=== PATIENT | female | born 1950 | race Caucasian/White ===

== ENCOUNTER 2017-12-01 13:34 | Observation (INO) | payer MEDICARE, BC ==
[2017-12-01] MEDS ORDERED: Aspirin Low Dose CHEW TAB* 81 MG PO ONE (13:55)
[2017-12-01 14:27] LABS: INR 0.86 (0.77-1.02)
[2017-12-01 14:30] LABS: ABS Basophils 0 10^3/ul (0-0.2); ABS Eosinophils 0.1 10^3/ul (0-0.6); ABS Lymphocytes 1.1 10^3/ul (1.0-4.8); ABS Monocytes 0.4 10^3/ul (0-0.8); ABS Neutrophils 5.2 10^3/ul (1.5-7.7); ABS Nucleated RBC 0 10^3/ul; Hematocrit 42 % (35-47); Hemoglobin 14.2 g/dl (12.0-16.0); Lymphocyte % 16.8 % (25-47); Mean Corpuscular HGB Conc 34 g/dl (31-36); Mean Corpuscular Hemoglobin 31 pg (27-31); Mean Corpuscular Volume 91 fL (80-97); Mean Platelet Volume 10 um3 (7.4-10.4); Nucleated Red Blood Cells % 0.1; Platelet Count 164 10^3/ul (150-450); Red Blood Count 4.62 10^6/ul (4.0-5.4); Red Cell Distribution Width 12 % (10.5-15); White Blood Count 6.8 10^3/ul (3.5-10.8)
[2017-12-01 14:47] LABS: EGFR Non-African American 57.1 (>60)
--- NOTE | 2017-12-01 15:13 | RAD ---
HISTORY: Chest pain COMPARISONS: None VIEWS: 1: frontal portable view of the chest at 2:49 PM FINDINGS: LINES AND TUBES: None. CARDIOMEDIASTINAL SILHOUETTE: The cardiomediastinal silhouette is normal for portable technique. PLEURA: The costophrenic angles are sharp. No pleural abnormalities are noted. LUNG PARENCHYMA: The lungs are clear. ABDOMEN: The upper abdomen is clear. There is no subphrenic gas. BONES AND SOFT TISSUES: No bone or soft tissue abnormalities are noted. IMPRESSION: NO ACTIVE CARDIOPULMONARY DISEASE.
[2017-12-01 15:53] LABS: Urine Appearance Clear; Urine Blood Negative (Negative); Urine Color Yellow; Urine Ketones Negative (Negative); Urine Protein Negative (Negative); Urine Specific Gravity 1.005 (1.010-1.030); Urine Urobilinogen Negative (Negative)
[2017-12-01] MEDS ORDERED: Magnesium Hydroxide LIQ* 30 ML UDC PO PRN (16:55)
[2017-12-01] MEDS ORDERED: Acetaminophen TAB* 325 MG PO PRN (16:55)
[2017-12-01] MEDS ORDERED: Al Hydrox/Mg Hydrox/Simet LIQ* 30 ML UDC PO PRN (16:55)
[2017-12-01] MEDS ORDERED: Ondansetron INJ* 2 MG/ML VIAL IV PRN (16:55)
[2017-12-01] MEDS ORDERED: traMADol TAB* 50 MG PO PRN (16:59)
[2017-12-01] MEDS: Docusate CAP* 100 MG PO SCH (20:18)
[2017-12-01] MEDS: Heparin VIAL(*) 5000 UNITS/ML VIAL (FIVE THOUSAND) SUBCUT SCH (20:18)
[2017-12-02] MEDS ORDERED: Melatonin (NF) 3 MG TAB PO ONE (01:00)
--- NOTE | 2017-12-02 03:30 | HP ---
AMENDED REPORT NOW INCLUDES COSIGNER DESIGNATION - ESIGNED BEFORE ADJUSTMENT CC: Dr. Webb * HISTORY AND PHYSICAL: DATE OF ADMISSION: 12/01/17 PROVIDER: Carolynn Perea NP. ATTENDING PHYSICIAN WHILE IN THE HOSPITAL: Agustina Bustamante MD * (dictated by Carolynn Perea NP). CHIEF COMPLAINT: Chest pain. HISTORY OF PRESENT ILLNESS: Ms. Jimenez is a 67-year-old female who carries a past medical history of high cholesterol and chronic back pain, depression, who presented to the emergency room with severe chest pain this morning. She states that this morning she developed severe onset of chest pain that lasted approximately 15 to 20 minutes where it was severe and then gradually dissipated over the next half an hour to 45 minutes. She states that initially the chest pain was sharp and then it gradually decreased to an ache, By the she arrived to the emergency her chest pain was gone. The patient also reports that the pain did radiate to her upper back and right jaw. She does report that lately she has had shortness of breath with exertion, especially climbing hills and climbing stairs. She denies any recent sick contacts. She denied any abdominal pain, nausea or vomiting or diaphoresis, denied any shortness of breath, cough or congestion. She denies any fevers or weakness While in the emergency room, she had serial lab work done. Her initial troponin is negative. Her CBC and BMP are essentially normal, except for a sodium of 131 and chloride of 98. Her creatinine is 0.97. Her potassium was 4.1, her mag was 2.4. We were asked to evaluate and admit her for her chest pain. PAST MEDICAL HISTORY: Significant for: 1. Back pain. 2. Depression. PAST SURGICAL HISTORY: abdominoplasty in 2000. No other surgeries. MEDICATIONS: 1. Celebrex 200 mg p.o. daily. 2. Vytorin 40/10. 3. Wellbutrin 300 mg p.o. daily. 4. Tramadol 50 mg p.r.n. 5. Multivitamin. 6. Calcium. 7. Glucosamine. ALLERGIES: No known drug allergies. FAMILY HISTORY: Mother~ aortic dissection and stroke, father ~ hypertension. Father and grandmother with diabetes and grandfather with bone cancer. SOCIAL HISTORY: The patient is a former smoker. She quit approximately 35 years ago. Prior to that she smoked 1 to 2 packs a day for approximately 15 years. She reports occasional alcohol use, denies any illicit drug use. 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 She is . Her surrogate decision maker is her , Silas, in the event she is unable to make her own decisions. His number is [phone]. REVIEW OF SYSTEMS: There is no documented fever. There has been no significant weight change. There is no double vision. No ear discharge. She does report occasional post nasal drip. She denies any sore throat. She denies any chest pain at this time. She does report that she had severe sharp chest pain earlier in the day that lasted approximately 15 to 20 minutes and then gradually dissipated. She denies any orthopnea or nocturnal dyspnea. There is no abdominal pain, there is no nausea, vomiting or diarrhea. There is no dysuria, no frequency. She denies any loss of consciousness. No pruritus or skin ulcerations. Denies any visual complaints. Denies any difficulty swallowing. Denies any anxiety or depression. A review of 14 systems was completed and all others are negative. PHYSICAL EXAMINATION GENERAL: At this time, Ms. Jimenez is a 67-year-old female. She appears well , sitting on the stretcher, in the emergency room. She does not appear to be in any acute distress. VITAL SIGNS: Blood pressure 155/77, heart rate was 70, respirations are 12, O2 saturation is 100% on room air. HEENT: Head is atraumatic, normocephalic. Eyes: EOMs are intact. Sclera anicteric, not pale. Oral mucosa appears to be moist. No oropharyngeal erythema. NECK: Supple. LUNGS: Clear to auscultation bilaterally. No wheezes, rales or rhonchi. CARDIAC: S1, S2. Regular rate and rhythm. There are no murmurs, rubs or gallops. She is tachycardic. ABDOMEN: Soft and nontender. Bowel sounds are present x4. EXTREMITIES: Pulses are +2 throughout. She is moving all 4 extremities with strength 5/5. NEUROLOGIC: She is awake, alert, and oriented x3. Speech is clear. There are no focal deficits. SKIN: Intact. DIAGNOSTIC AND LABORATORY DATA: WBC is 6.8, RBC is 4.62, hemoglobin 14.2, hematocrit 42, platelet count 164. INR is 0.86. D-dimer was less than 200. Sodium was 131, potassium 4.1, chloride 98, carbon dioxide 24, anion gap was 9, BUN was 14, creatinine 0.97, glucose was 99, lactic acid was 0.5, calcium was 9.5, magnesium was 2.4. TSH was 1.37. BNP was 25. Troponin was 0.00. Urinalysis: pH was 7.0, specific gravity was 1.005; urine protein, ketones, blood, nitrates, urine bilirubin, urine leukocyte esterase, and urine glucose were all negative. She had a chest x-ray in the emergency room that showed no active cardiopulmonary disease. EKG was sinus rhythm at 68. ASSESSMENT AND PLAN: Ms. Jimenez is a 67-year-old female that presented to the emergency room today with complaints of sharp midsternal chest pain that radiated to her back. We were asked to evaluate her for chest pain and rule out coronary artery disease. She will be admitted under observation status for: 1. Chest pain: We will place her on telemetry monitoring. She will get serial troponins. We will repeat an EKG on Monday morning. She will have a nuclear stress test on Monday. She states that she is able to walk on a treadmill, so we will do an exercise stress with the nuclear. She will be placed on heart-healthy diet. 2. High cholesterol: We will continue her on her Vytorin . We will repeat a fasting lipid panel in the a.m. 3. Depression: We will continue her on her Wellbutrin 300 mg p.o. daily. 4. Chronic back pain: She can have Tramadol 50 mg every 6 hours as needed for pain. 5. DVT prophylaxis: She will get heparin 5000 units subcu q.8 hours. 6. Code status: She is a full code. 7. Fluid, electrolytes, nutrition: She can have a heart-healthy diet, decaf is okay. TIME SPENT: Time spent on this admission was approximately 60 minutes, greater than half that time was spent [id number] with the patient obtaining her history and physical, the other half of the time was spent going over her plan of care with the patient and her family and implementing that plan of care. I have discussed this with my attending, Dr. Agustina Bustamante, and she is in agreement with my plan. CAROLYNN PEREA, ELECTRIC [employer] FURNACE OPERATOR [id number]/[facility] #: [id number] [facility]IDE HOSPITALChapincito
[2017-12-02] MEDS: Heparin VIAL(*) 5000 UNITS/ML VIAL (FIVE THOUSAND) SUBCUT SCH ×3 (05:21→20:02)
[2017-12-02 05:51] LABS: ABS Basophils 0 10^3/ul (0-0.2); ABS Eosinophils 0.1 10^3/ul (0-0.6); ABS Lymphocytes 1.3 10^3/ul (1.0-4.8); ABS Monocytes 0.4 10^3/ul (0-0.8); ABS Neutrophils 3.4 10^3/ul (1.5-7.7); ABS Nucleated RBC 0 10^3/ul; Eosinophil % 1.4 % (0-6); Hematocrit 38 % (35-47); Hemoglobin 12.9 g/dl (12.0-16.0); Lymphocyte % 25.2 % (25-47); Mean Corpuscular HGB Conc 34 g/dl (31-36); Mean Corpuscular Hemoglobin 31 pg (27-31); Mean Corpuscular Volume 91 fL (80-97); Mean Platelet Volume 10 um3 (7.4-10.4); Nucleated Red Blood Cells % 0.1; Platelet Count 139 10^3/ul (150-450); Red Cell Distribution Width 13 % (10.5-15); White Blood Count 5.3 10^3/ul (3.5-10.8)
[2017-12-02 06:07] LABS: EGFR Non-African American 63.1 (>60)
[2017-12-02] MEDS: Ezetimibe TAB* 10 MG PO SCH (09:00)
[2017-12-02] MEDS ORDERED: EZETIMIBE PO SCH (09:00)
[2017-12-02] MEDS: Docusate CAP* 100 MG PO SCH ×2 (09:00→20:02)
[2017-12-02] MEDS: Atorvastatin* 20 MG TAB PO SCH (09:00)
[2017-12-02] MEDS ORDERED: SIMVASTATIN PO SCH (09:00)
[2017-12-02] MEDS: celeCOXIB CAP* 100 MG PO SCH (09:13)
--- NOTE | 2017-12-02 15:24 | PN ---
Subjective Date of Service: 12/02/17 Interval History: Patient had minor ches discomfort for 15 minutes last evening. Objective Active Medications: Acetaminophen (Tylenol Tab*) 650 mg PO Q4H PRN PRN Reason: FEVER/PAIN Al Hydrox/Mg Hydrox/Simethicone (Maalox Plus*) 30 ml PO Q6H PRN PRN Reason: INDIGESTION Atorvastatin Calcium (Lipitor*) 20 mg PO DAILY [facility] Last Admin: 12/02/17 09:00 Dose: 20 mg Celecoxib (Celebrex Cap*) 200 mg PO DAILY [facility] Last Admin: 12/02/17 09:13 Dose: 200 mg Docusate Sodium (Colace Cap*) 100 mg PO BID [facility] Last Admin: 12/02/17 09:00 Dose: Not Given Ezetimibe (Zetia Tab*) 10 mg PO DAILY [facility] Last Admin: 12/02/17 09:00 Dose: 10 mg Heparin Sodium (Porcine) (Heparin Vial(*)) 5,000 units SUBCUT Q8HR [facility] Last Admin: 12/02/17 14:07 Dose: Not Given Magnesium Hydroxide (Milk Of Magnesia Liq*) 30 ml PO Q4H PRN PRN Reason: CONSTIPATION Ondansetron HCl (Zofran Inj*) 4 mg IV Q4H PRN PRN Reason: NAUSEA/VOMITING Tramadol HCl (Ultram*) 50 mg PO Q6HR PRN PRN Reason: PAIN Vital Signs - 8 hr 12/02/17 07:37 Temperature 97.9 F Pulse Rate 70 Respiratory 16 Rate Blood Pressure 126/60 (mmHg) O2 Sat by Pulse 97 Oximetry Oxygen Devices in Use Now: None Appearance: Alert, in a chair. In good spirits. Looks comfortable. Eyes: No Scleral Icterus Extremities: No Edema, No Clubbing, Cyanosis, - Skin: No Rash or Ulcers, No Nodules or Sclerosis, - Neurological: Alert and Oriented x 3, NL Sensation Result Diagrams: 12/02/17 05:41 12/02/17 05:41 Assess/Plan/Problems-Billing Assessment: - Patient Problems (1) Atypical chest pain Current Visit: Yes Status: Acute Code(s): R07.89 - OTHER CHEST PAIN SNOMED Code(s): 237081265 Comment: All 3 troponins wnl. Stress echo 12/04. Patient prefers to not have nuclear scan. Walking here quite a bit. (2) Back pain Current Visit: Yes Status: Acute Code(s): M54.9 - DORSALGIA, UNSPECIFIED SNOMED Code(s): 665302813 Comment: Continue home meds. (3) Depressed Current Visit: Yes Status: Acute Code(s): F32.9 - MAJOR DEPRESSIVE DISORDER , SINGLE EPISODE, UNSPECIFIED SNOMED Code(s): 97875168 Comment: Continue home meds.
--- NOTE | 2017-12-02 16:49 | ED ---
Silver Mi Thomas, scribed for John Hagan MD on 12/01/17 at 1450 . HPI Chest Pain - HPI Summary HPI Summary: The patient is a 67 year old female presenting with chest pain that began one hour prior to arrival when she was sitting and working at her computer. The episode of chest pain is relieved in the emergency department, and the duration of the episode was 10-20 minutes. The pain is described as pressure. She rates this pain 8/10. She has never had pain like this before. She denies nausea, vomiting, dizziness, shortness of breath, and near-syncope. Past medical history includes HLD. - History of Current Complaint Chief Complaint: EDChestPainROMI Time Seen by Provider: 12/01/17 13:43 Hx Obtained From: Patient Onset/Duration: Started Hours Ago - 1, Resolved Timing: Lasting Minutes - 10-20 Initial Severity: Severe Pain Intensity: 8 Pain Scale Used: 0-10 Numeric Chest Pain Radiates: No Aggravating Factor(s): Nothing Alleviating Factor(s): Nothing Associated Signs and Symptoms: Negative: Other: - nausea, vomiting, dizziness, shortness of breath, near-syncope - Allergy/Home Medications Allergies/Adverse Reactions: Allergies Allergy/AdvReac Type Severity Reaction Status Date / Time No Known Allergies Allergy Verified 12/01/17 14:22 Home Medications: Home Medications Bupropion XL* [Wellbutrin XL *] 300 mg PO DAILY 12/01/17 [History Confirmed 07/10] DULoxetine DR CAP* [Cymbalta CAP*] 30 mg PO DAILY 12/01/17 [History Confirmed ] Ezetimibe/Simvastatin [Vytorin 10-40 mg Tablet] 1 each PO DAILY 12/01/17 [ History Confirmed 12/01/17] celeCOXIB CAP* [CeleBREX CAP*] 200 mg PO DAILY 12/01/17 [History Confirmed 12/01] traMADol TAB* [Ultram*] 50 mg PO Q6HR PRN 12/01/17 [History Confirmed 12/01/17] PMH/Surg Hx/FS Hx/Imm Hx Endocrine/Hematology History: Denies: Hx Diabetes Cardiovascular History: Reports: Hx Hypercholesterolemia Denies: Hx Hypertension Infectious Disease History: No Infectious Disease History: Denies: Traveled Outside the [place] in Last 30 Days - Family History Known Family History: Positive: Cardiac Disease, Diabetes - Social History Alcohol Use: Rare Substance Use Type: Reports: None Smoking Status (MU): Former Smoker Review of Systems Negative: Fever Positive: Chest Pain Negative: Shortness Of Breath Negative: Vomiting, Nausea Neurological: Other - NEGATIVE: dizziness Negative: Syncope - near All Other Systems Reviewed And Are Negative: Yes Physical Exam - Summary Physical Exam Summary: VITAL SIGNS: Reviewed. GENERAL: Patient is a well-developed and nourished female who is lying comfortable in the stretcher. Patient is not in any acute respiratory distress. HEAD AND FACE: No signs of trauma. No ecchymosis, hematomas or skull depressions. No sinus tenderness. EYES: PERRLA, EOMI x 2, No injected conjunctiva, no nystagmus. EARS: Hearing grossly intact. Ear canals and tympanic membranes are within normal limits. MOUTH: Oropharynx within normal limits. NECK: Supple, trachea is midline, no adenopathy, no JVD, no carotid bruit, no c- spine tenderness, neck with full ROM. CHEST: Symmetric, no tenderness at palpation LUNGS: Clear to auscultation bilaterally. No wheezing or crackles. CVS: Regular rate and rhythm, S1 and S2 present, no murmurs or gallops appreciated. ABDOMEN: Soft, non-tender. No signs of distention. No rebound no guarding, and no masses palpated. Bowel sounds are normal. EXTREMITIES: FROM in all major joints, no edema, no cyanosis or clubbing. NEURO: Alert and oriented x 3. No acute neurological deficits. Speech is normal and follows commands. SKIN: Dry and warm Triage Information Reviewed: Yes Vital Signs On Initial Exam: Initial Vitals Temp Pulse Resp BP Pulse Ox 97.4 F 70 18 146/76 97 12/01/17 13:36 12/01/17 13:36 12/01/17 13:36 12/01/17 13:36 12/01/17 13:36 Vital Signs Reviewed: Yes Diagnostics - Vital Signs Vital Signs Temp Pulse Resp BP Pulse Ox 12/01/17 13:36 97.4 F 70 18 146/76 97 - Laboratory Lab Results: Lab Results 12/01/17 12/01/17 12/01/17 Range/Units 14:00 14:00 14:00 WBC 6.8 (3.5-10.8) 10^3/ul RBC 4.62 (4.0-5.4) 10^6/ul Hgb 14.2 (12.0-16.0) g/dl Hct 42 (35-47) % MCV 91 (80-97) fL MCH 31 (27-31) pg MCHC 34 (31-36) g/dl RDW 12 (10.5-15) % Plt Count 164 (150-450) 10^3/ul MPV 10 (7.4-10.4) um3 Neut % (Auto) 75.7 (38-83) % Lymph % (Auto) 16.8 L (25-47) % Day % (Auto) 5.9 (1-9) % Eos % (Auto) 1.0 (0-6) % Baso % (Auto) 0.6 (0-2) % Absolute Neuts (auto) 5.2 (1.5-7.7) 10^3/ul Absolute Lymphs (auto) 1.1 (1.0-4.8) 10^3/ul Absolute Monos (auto) 0.4 (0-0.8) 10^3/ul Absolute Eos (auto) 0.1 (0-0.6) 10^3/ul Absolute Basos (auto) 0 (0-0.2) 10^3/ul Absolute Nucleated RBC 0 10^3/ul Nucleated RBC % 0.1 INR (Anticoag Therapy) 0.86 (0.77-1.02) APTT 32.4 (26.0-36.3) seconds Sodium Pending Potassium Pending Chloride Pending Carbon Dioxide Pending Anion Gap Pending BUN Pending Creatinine Pending Est GFR ( Amer) Pending Est GFR (Non-Af Amer) Pending BUN/Creatinine Ratio Pending Glucose Pending Calcium Pending Magnesium Pending Total Bilirubin Pending AST Pending ALT Pending Alkaline Phosphatase Pending Total Creatine Kinase Pending CK-MB (CK-2) Pending Troponin I 0.00 (<0.04) ng/mL Total Protein Pending Albumin Pending Globulin Pending Albumin/Globulin Ratio Pending TSH Pending Result Diagrams: 12/01/17 14:00 12/01/17 14:00 Lab Statement: Any lab studies that have been ordered have been reviewed, and results considered in the medical decision making process. - Radiology CXR Xray Interpretation: No Acute Changes - No active cardiopulmonary disease. Dr. Hagan has reviewed this report. Radiology Interpretation Completed By: Radiologist - EKG 13:42 Cardiac Rate: NL EKG Rhythm: Sinus Rhythm - at 68 BPM EKG Interpretation: ST depressions in V2, V3, AVF, and V4-V6. Chest Pain Course/Dx - Course Assessment/Plan: The patient is a 67 year old female presenting with chest pain that began one hour prior to arrival when she was sitting and working at her computer. The episode of chest pain is relieved in the emergency department, and the duration of the episode was 10-20 minutes. The pain is described as pressure. She rates this pain 8/10. She has never had pain like this before. She denies nausea, vomiting, dizziness, shortness of breath, and near-syncope. Past medical history includes HLD. Test results are without any significant abnormalities. The EKG shows ST depressions in lateral leads. Therefore, I want to rule out ACS for this patient. I discussed the case with Dr. Bustamante, who accepts the patient for admission. The patient is hemodynamically stable and alert and oriented x3. - Diagnoses Provider Diagnoses: Chest pain rule out ACS - Provider Notifications Discussed Care Of Patient With: Agustina Bustamante Time Discussed With Above Provider: 18:05 Instructed by Provider To: Admit As Inpatient Discharge - Discharge Plan Condition: Fair Disposition: ADMITTED TO [facility] The documentation as recorded by the Silver galeano Thomas accurately reflects the service I personally performed and the decisions made by me, John Hagan MD.
[2017-12-03] MEDS: Heparin VIAL(*) 5000 UNITS/ML VIAL (FIVE THOUSAND) SUBCUT SCH ×3 (05:13→20:31)
[2017-12-03] MEDS: celeCOXIB CAP* 100 MG PO SCH (08:23)
[2017-12-03] MEDS: Ezetimibe TAB* 10 MG PO SCH (08:24)
[2017-12-03] MEDS: Atorvastatin* 20 MG TAB PO SCH (08:24)
[2017-12-03] MEDS: Docusate CAP* 100 MG PO SCH ×2 (08:25→20:31)
[2017-12-03] MEDS: BuPROPion XL* 300 MG TAB.XL PO SCH (10:13)
[2017-12-03] MEDS: DULoxetine DR CAP* 30 MG CAP.DR PO SCH (10:13)
--- NOTE | 2017-12-03 17:30 | PN ---
Subjective Date of Service: 12/03/17 Interval History: Frequent walking, no pain No complaints anxious to have stress test Objective Active Medications: Acetaminophen (Tylenol Tab*) 650 mg PO Q4H PRN PRN Reason: FEVER/PAIN Al Hydrox/Mg Hydrox/Simethicone (Maalox Plus*) 30 ml PO Q6H PRN PRN Reason: INDIGESTION Atorvastatin Calcium (Lipitor*) 20 mg PO DAILY [facility] Last Admin: 12/03/17 08:24 Dose: 20 mg Bupropion HCl (Bupropion Xl*) 300 mg PO DAILY [facility] PRN Reason: Protocol Last Admin: 12/03/17 10:13 Dose: 300 mg Celecoxib (Celebrex Cap*) 200 mg PO DAILY [facility] Last Admin: 12/03/17 08:23 Dose: 200 mg Docusate Sodium (Colace Cap*) 100 mg PO BID [facility] Last Admin: 12/03/17 08:25 Dose: Not Given Duloxetine HCl (Cymbalta Cap*) 30 mg PO DAILY [facility] Last Admin: 12/03/17 10:13 Dose: Not Given Ezetimibe (Zetia Tab*) 10 mg PO DAILY [facility] Last Admin: 12/03/17 08:24 Dose: 10 mg Heparin Sodium (Porcine) (Heparin Vial(*)) 5,000 units SUBCUT Q8HR [facility] Last Admin: 12/03/17 14:09 Dose: Not Given Magnesium Hydroxide (Milk Of Magnesia Liq*) 30 ml PO Q4H PRN PRN Reason: CONSTIPATION Ondansetron HCl (Zofran Inj*) 4 mg IV Q4H PRN PRN Reason: NAUSEA/VOMITING Vital Signs - 8 hr 12/03/17 11:39 Temperature 97.9 F Pulse Rate 70 Respiratory 16 Rate Blood Pressure 127/63 (mmHg) O2 Sat by Pulse 96 Oximetry Oxygen Devices in Use Now: None Appearance: NAD Eyes: No Scleral Icterus, PERRLA Ears/Nose/Mouth/Throat: NL Teeth, Lips, Gums, Clear Oropharnyx, Mucous Membranes Moist Neck: NL Appearance and Movements; NL JVP, Trachea Midline Respiratory: Symmetrical Chest Expansion and Respiratory Effort, Clear to Auscultation Cardiovascular: NL Sounds; No Murmurs; No JVD, RRR Abdominal: NL Sounds; No Tenderness; No Distention Lymphatic: No Cervical Adenopathy, No Axillary Adenopathy Extremities: No Edema Skin: No Rash or Ulcers Neurological: Alert and Oriented x 3 Result Diagrams: 12/02/17 05:41 12/02/17 05:41 Additional Lab and Data: Lab Results 12/01/17 12/01/17 12/01/17 Range/Units 14:00 14:00 14:00 WBC 6.8 (3.5-10.8) 10^3/ul RBC 4.62 (4.0-5.4) 10^6/ul Hgb 14.2 (12.0-16.0) g/dl Hct 42 (35-47) % MCV 91 (80-97) fL MCH 31 (27-31) pg MCHC 34 (31-36) g/dl RDW 12 (10.5-15) % Plt Count 164 (150-450) 10^3/ul MPV 10 (7.4-10.4) um3 Neut % (Auto) 75.7 (38-83) % Lymph % (Auto) 16.8 L (25-47) % [place] % (Auto) 5.9 (1-9) % Eos % (Auto) 1.0 (0-6) % Baso % (Auto) 0.6 (0-2) % Absolute Neuts (auto) 5.2 (1.5-7.7) 10^3/ul Absolute Lymphs (auto) 1.1 (1.0-4.8) 10^3/ul Absolute Monos (auto) 0.4 (0-0.8) 10^3/ul Absolute Eos (auto) 0.1 (0-0.6) 10^3/ul Absolute Basos (auto) 0 (0-0.2) 10^3/ul Absolute Nucleated RBC 0 10^3/ul Nucleated RBC % 0.1 INR (Anticoag Therapy) 0.86 (0.77-1.02) APTT 32.4 (26.0-36.3) seconds Sodium Pending Potassium Pending Chloride Pending Carbon Dioxide Pending Anion Gap Pending BUN Pending Creatinine Pending Est GFR ( Amer) Pending Est GFR (Non-Af Amer) Pending BUN/Creatinine Ratio Pending Glucose Pending Calcium Pending Magnesium Pending Total Bilirubin Pending AST Pending ALT Pending Alkaline Phosphatase Pending Total Creatine Kinase Pending CK-MB (CK-2) Pending Troponin I 0.00 (<0.04) ng/mL Total Protein Pending Albumin Pending Globulin Pending Albumin/Globulin Ratio Pending TSH Pending Assess/Plan/Problems-Billing Assessment: 67 yo F p/w chest pain - Patient Problems (1) Depression Comment: buproprion, cymbalta (2) Atypical chest pain Code(s): R07.89 - OTHER CHEST PAIN SNOMED Code(s): 108738602 Comment: All 3 troponins wnl. Stress echo 12/04. Patient prefers to not have nuclear scan. (3) Back pain Comment: celebrex (4) DVT prophylaxis Comment: HSQ
[2017-12-03] MEDS ORDERED: CMCS:Melatonin (NF) 3 MG TAB PO SCH (22:00)
[2017-12-04] MEDS: Heparin VIAL(*) 5000 UNITS/ML VIAL (FIVE THOUSAND) SUBCUT SCH (05:06)
[2017-12-04] MEDS: BuPROPion XL* 300 MG TAB.XL PO SCH (11:23)
[2017-12-04] MEDS: Atorvastatin* 20 MG TAB PO SCH (11:23)
[2017-12-04] MEDS: celeCOXIB CAP* 100 MG PO SCH (11:24)
[2017-12-04] MEDS: Ezetimibe TAB* 10 MG PO SCH (11:24)
[2017-12-04] MEDS: DULoxetine DR CAP* 30 MG CAP.DR PO SCH (11:24)
[2017-12-04] MEDS: Docusate CAP* 100 MG PO SCH (11:24)
--- NOTE | 2017-12-04 11:59 | PN ---
Subjective Date of Service: 12/04/17 Interval History: Denies chest pain, No complaints, sitting in chair waiting for stress test at this time. Denies Shortness of breath or abd pain. Denies N/V/D Family History: Unchanged from Admission Social History: Unchanged from Admission Past Medical History: Unchanged from Admission Objective Active Medications: Acetaminophen (Tylenol Tab*) 650 mg PO Q4H PRN PRN Reason: FEVER/PAIN Al Hydrox/Mg Hydrox/Simethicone (Maalox Plus*) 30 ml PO Q6H PRN PRN Reason: INDIGESTION Atorvastatin Calcium (Lipitor*) 20 mg PO DAILY [facility] Last Admin: 12/04/17 11:23 Dose: Not Given Bupropion HCl (Bupropion Xl*) 300 mg PO DAILY [facility] PRN Reason: Protocol Last Admin: 12/04/17 11:23 Dose: Not Given Celecoxib (Celebrex Cap*) 200 mg PO DAILY [facility] Last Admin: 12/04/17 11:24 Dose: Not Given Docusate Sodium (Colace Cap*) 100 mg PO BID [facility] Last Admin: 12/04/17 11:24 Dose: Not Given Duloxetine HCl (Cymbalta Cap*) 30 mg PO DAILY [facility] Last Admin: 12/04/17 11:24 Dose: Not Given Ezetimibe (Zetia Tab*) 10 mg PO DAILY [facility] Last Admin: 12/04/17 11:24 Dose: Not Given Heparin Sodium (Porcine) (Heparin Vial(*)) 5,000 units SUBCUT Q8HR [facility] Last Admin: 12/04/17 05:06 Dose: Not Given Magnesium Hydroxide (Milk Of Magnesia Liq*) 30 ml PO Q4H PRN PRN Reason: CONSTIPATION Melatonin (Melatonin (Nf)) 3 mg PO BEDTIME [facility] Last Admin: 12/03/17 22:08 Dose: 3 mg Ondansetron HCl (Zofran Inj*) 4 mg IV Q4H PRN PRN Reason: NAUSEA/VOMITING Vital Signs - 8 hr 12/04/17 12/04/17 07:19 08:00 Temperature 98.1 F Pulse Rate 76 Respiratory 16 16 Rate Blood Pressure 149/61 (mmHg) O2 Sat by Pulse 100 Oximetry Oxygen Devices in Use Now: None Appearance: appears comfortable sitting in chair Eyes: No Scleral Icterus Ears/Nose/Mouth/Throat: Clear Oropharnyx, Mucous Membranes Moist Neck: NL Appearance and Movements; NL JVP, Trachea Midline Respiratory: Symmetrical Chest Expansion and Respiratory Effort, Clear to Auscultation Cardiovascular: NL Sounds; No Murmurs; No JVD, RRR, No Edema Abdominal: NL Sounds; No Tenderness; No Distention Extremities: No Edema, No Clubbing, Cyanosis Skin: No Rash or Ulcers Neurological: Alert and Oriented x 3, NL Gait, NL Muscle Strength and Tone Nutrition: Taking PO's Result Diagrams: 12/02/17 05:41 12/02/17 05:41 Additional Lab and Data: Lab Results 12/01/17 12/01/17 12/01/17 Range/Units 14:00 14:00 14:00 WBC 6.8 (3.5-10.8) 10^3/ul RBC 4.62 (4.0-5.4) 10^6/ul Hgb 14.2 (12.0-16.0) g/dl Hct 42 (35-47) % MCV 91 (80-97) fL MCH 31 (27-31) pg MCHC 34 (31-36) g/dl RDW 12 (10.5-15) % Plt Count 164 (150-450) 10^3/ul MPV 10 (7.4-10.4) um3 Neut % (Auto) 75.7 (38-83) % Lymph % (Auto) 16.8 L (25-47) % Boyle % (Auto) 5.9 (1-9) % Eos % (Auto) 1.0 (0-6) % Baso % (Auto) 0.6 (0-2) % Absolute Neuts (auto) 5.2 (1.5-7.7) 10^3/ul Absolute Lymphs (auto) 1.1 (1.0-4.8) 10^3/ul Absolute Monos (auto) 0.4 (0-0.8) 10^3/ul Absolute Eos (auto) 0.1 (0-0.6) 10^3/ul Absolute Basos (auto) 0 (0-0.2) 10^3/ul Absolute Nucleated RBC 0 10^3/ul Nucleated RBC % 0.1 INR (Anticoag Therapy) 0.86 (0.77-1.02) APTT 32.4 (26.0-36.3) seconds Sodium Pending Potassium Pending Chloride Pending Carbon Dioxide Pending Anion Gap Pending BUN Pending Creatinine Pending Est GFR ( Amer) Pending Est GFR (Non-Af Amer) Pending BUN/Creatinine Ratio Pending Glucose Pending Calcium Pending Magnesium Pending Total Bilirubin Pending AST Pending ALT Pending Alkaline Phosphatase Pending Total Creatine Kinase Pending CK-MB (CK-2) Pending Troponin I 0.00 (<0.04) ng/mL Total Protein Pending Albumin Pending Globulin Pending Albumin/Globulin Ratio Pending TSH Pending Assess/Plan/Problems-Billing Assessment: 67 yo F p/w chest pain - Patient Problems (1) Atypical chest pain Current Visit: Yes Status: Acute Code(s): R07.89 - OTHER CHEST PAIN SNOMED Code(s): 001809874 Comment: All 3 troponins wnl. Stress echo 12/04. Patient prefers to not have nuclear scan. Would like to try exercise stress (2) Back pain Current Visit: Yes Status: Acute Code(s): M54.9 - DORSALGIA, UNSPECIFIED SNOMED Code(s): 072771325 Comment: celebrex (3) Depression Current Visit: Yes Status: Acute Code(s): F32.9 - MAJOR DEPRESSIVE DISORDER , SINGLE EPISODE, UNSPECIFIED SNOMED Code(s): 25763183 Comment: Stable~ buproprion, cymbalta (4) DVT prophylaxis Current Visit: Yes Status: Acute Code(s): YIF2530 - SNOMED Code(s): 860720826 Comment: HSQ (5) Full code status Current Visit: Yes Status: Acute Code(s): Z78.9 - OTHER SPECIFIED HEALTH STATUS SNOMED Code(s): 197495849 Status and Disposition: Possible discharge home~ pending stress
[2017-12-04 12:33] VITALS: BP 138/64
--- NOTE | 2017-12-05 10:20 | DS ---
CC: Dr. Mayra Webb DISCHARGE SUMMARY: DATE OF ADMISSION: 12/01/17 DATE OF DISCHARGE: 12/04/17 PROVIDER: Carolynn Perea NP. ATTENDING PHYSICIAN: Dr. Anil Thomas (dictated by Carolynn Perea NP) PRIMARY CARE PROVIDER: Mayra Webb MD. PRIMARY DIAGNOSIS: Chest pain. SECONDARY DIAGNOSES: 1. Back pain. 2. Depression. 3. Hypercholesterolemia. STUDIES COMPLETED WHILE IN THE HOSPITAL: She had a chest x-ray on 12/01/17, which showed no active c ardiopulmonary disease. She had a stress echo on 12/04/17, which was low risk. Normal maximum stres s echo with no signs of ischemia. EKG on 12/04/17 shows sinus rhythm at a rate of 72. No ST changes . DISCHARGE MEDICATIONS: There are no new medications. She will continue on her previous home medicat ions. 1. Wellbutrin 300 mg p.o. daily. 2. Cymbalta 30 mg p.o. daily. 3. Tramadol 50 mg p.o. q. 6 hours as needed for pain. 4. Celebrex 200 mg p.o. daily. 5. Vytorin 10/40 one p.o. daily. HISTORY OF PRESENT ILLNESS AND HOSPITAL COURSE: Ms. Jimenez is a 67-year-old female who carries a past medical history of high cholesterol, chronic back pain, depression, who presented to the emergen cy room with severe chest pain that started the morning of her admission. She states that it was sha rp and lasted about 15 to 20 minutes and then gradually dissipated over the next 45 minutes. On her arrival to the emergency room, her chest pain was gone. Patient does report that her chest pain radi ated to her upper back and jaw and does report that she lately has been short of breath with exertion especially climbing hills and stairs. She denied any recent sick contacts. Denied abdominal pain, nausea, vomiting, or diarrhea. Denied any diaphoresis. Denies shortness of breath, cough, or congest ion. Denied any fevers or chills. While in the emergency room, she had serial lab work done. The initial troponin was negative. Her C BC and BMP were essentially normal except for sodium of 131 and chloride of 98. Her potassium level was 4.1. Mag was 2.4. She was seen and evaluated by the hospitalist for her chest pain. While in the hospital, she was monitored on telemetry. There were no arrhythmias noted. She did hav e a stress echo on 12/04/17, which was low risk, normal maximum stress echo without evidence of ische emelina. Her troponins remained negative at 0.00 x3. Ms. Jimenez reports that she has had no further chest pain today. She did state she had slight chest pain over the weekend but has not had any since Monday night. At this time, Ms. Jimenez is stable for discharge home. Ms. Jimenez will be discharged home today. Vital signs are as follows: Temperature was 98.3, heart rate was 71, respirations 14, O2 saturation 100% on room air, blood pressure 138/64. DISCHARGE PLAN: Ms. Jimenez will be discharged back home. 1. Activity as tolerated. 2. She should continue on a heart healthy diet, low sodium, and low fat. In regards to her chest pain, she should follow up with her primary care provider in 4 to 7 days. Fo r her high cholesterol, she should continue on her Vytorin. For her back pain, she should continue t aking her Celebrex as needed. For her depression, she should continue Cymbalta and Wellbutrin as pre viously prescribed. Ms. Jimenez was instructed to return to the emergency room for any increase of chest pain or shortn ess of breath or any worsening of her symptoms. This is a summary of her hospitalization. For further details, please see her entire medical record. TIME SPENT: Time spent on this discharge is approximately 45 minutes, greater than half that time w as spent with the patient discussing discharge plans and instructions. CONDITION ON DISCHARGE: Stable. CAROLYNN JORGE A, AVELINO [id number]/[facility] #: [id number]
== END 2017-12-04 14:35 | disposition home or self-care (01) ==
LOC: ED 13:34 → MEDTELE 16:53 → INTOOBSV 16:53
PROVIDERS: ADMIT Internal Medicine; ATTEND Internal Medicine
DX: R07.89 Other chest pain (principal); K59.00 Constipation, unspecified; F32.9 Major depressive disorder, single episode, unspecified; M54.9 Dorsalgia, unspecified; Z87.891 Personal history of nicotine dependence
CPT/HCPCS: 36415; 71045; 80048; 80053; 80061; 81003; 82550; 82553; 83605; 83735; 83880; 84443; 84484; 85025; 85379; 85610; 85730; 93005; 93351; 96374; 99284; A9270-GY; G0378

== ENCOUNTER 2019-02-06 19:29 | Emergency (ER) | payer MEDICARE, BC ==
[2019-02-06] MEDS ORDERED: ED Piperacillin/Tazobac 3.375 3.375 GM/100 ML PREMIX.SET IVPB ONE (20:44)
--- NOTE | 2019-02-06 20:46 | ED ---
Bite Injury/Animal - HPI Summary HPI Summary: Pt. is a 68 y.o female who presents to the ER for evaluation of a cat bite that occurred last night. Pt. states her cat is sick and she was giving it medication when it bite her right thumb. Pt. was seen by her PCP and was started on antibx and tetanus was updated. Pt. states tonight she noticed redness going up her right arm. She denies fever, chills, N/V. Is not a diabetic. Sxs are moderate in severity. Touching affected area makes sxs worse. Rest makes sxs better. - History of Current Complaint Chief Complaint: EDAnimalBite Stated Complaint: CAT BITE PER PT Time Seen by Provider: 02/06/19 20:19 Hx Obtained From: Patient Pain Intensity: 3 - Allergies/Home Medications Allergies/Adverse Reactions: Allergies Allergy/AdvReac Type Severity Reaction Status Date / Time monosodium glutamate Allergy Mild Headache Verified 02/06/19 19:35 Home Medications: Home Medications Augmentin TAB 875* 875 mg PO BID 02/06/19 [History Confirmed 02/06/19] PMH/Surg Hx/FS Hx/Imm Hx Previously Healthy: Yes Endocrine/Hematology History: Denies: Hx Diabetes Cardiovascular History: Reports: Hx Hypercholesterolemia Denies: Hx Hypertension GI History: Reports: Hx Gastroesophageal Reflux Disease - PT TAKING MEDICATION FOR Musculoskeletal History: Reports: Hx Arthritis - OSTEOARTHRITIS-BILATERAL KNEES- TAKING MEDICATION FOR Sensory History: Reports: Hx Cataracts - CATARACT SURGERY IN 2000-BOTH EYES, Hx Contacts or Glasses Denies: Hx Hearing Aid Opthamlomology History: Reports: Hx Cataracts - CATARACT SURGERY IN 2000-BOTH EYES, Hx Contacts or Glasses Psychiatric History: Reports: Hx Depression - ON MEDICATION FOR - Surgical History Surgery Procedure, Year, and Place: TUBAL -1968. CATARACT SURGERY- 2000. ABDOMINALPLASTY-2004. LUMPECTOMY LEFT BREAST-NO LYMPH NODES Hx Anesthesia Reactions: Yes - VOMITTING Infectious Disease History: No Infectious Disease History: Denies: Hx Clostridium Difficile, Hx Hepatitis, Hx Human Immunodeficiency Virus (HIV), Hx of Known/Suspected MRSA, Hx Shingles, Hx Tuberculosis, History Other Infectious Disease, Traveled Outside the [place] in Last 30 Days - Family History Known Family History: Positive: Cardiac Disease, Diabetes - Social History Occupation: Retired Lives: With Family Alcohol Use: Occasionally Alcohol Amount: GLASS OF WINE Substance Use Type: Reports: None Smoking Status (MU): Former Smoker Type: Cigarettes Amount Used/How Often: 1.5 PK DAILY Review of Systems Constitutional: Negative Negative: Fever, Chills Gastrointestinal: Negative Negative: Vomiting, Nausea Positive: Other - cat bite to right thumb Negative: Weakness, Paresthesia, Numbness All Other Systems Reviewed And Are Negative: Yes Physical Exam Triage Information Reviewed: Yes Vital Signs On Initial Exam: Initial Vitals Temp Pulse Resp BP Pulse Ox 98.0 F 80 18 182/78 95 02/06/19 19:31 02/06/19 19:31 02/06/19 19:31 02/06/19 19:31 02/06/19 19:31 Vital Signs Reviewed: Yes Appearance: Positive: Well-Appearing - Pt. sitting in chair in NAD. present. Skin: Positive: Warm, Dry Head/Face: Positive: Normal Head/Face Inspection Eyes: Positive: Normal, EOMI Neck: Positive: Supple Musculoskeletal: Positive: Other - Puncture wound to right thumb on palmar aspect. Surrounding edema. FUll ROM of digit with flexion. No invovlement of wrist. Lymphangitis noticed up forarm to just below AC region. Neurological: Positive: Normal, CN Intact II-III Psychiatric: Positive: Affect/Mood Appropriate Diagnostics - Vital Signs Vital Signs Temp Pulse Resp BP Pulse Ox 02/06/19 19:31 98.0 F 80 18 182/78 95 - Laboratory Result Diagrams: 02/06/19 21:02 02/06/19 21:02 Lab Statement: Any lab studies that have been ordered have been reviewed, and results considered in the medical decision making process. Bite Injury Course/Dx - Course Course Of Treatment: Pt. presenting for infected cat bite and lymphangitis. She is afebrile. No signs of flexor tenosynovitis at this time. Labs and cultures ordered. Pt. given a dose of IV zosyn. Labs shows normal CBC. CRP elevated at 48.6. Xray negative for FB, fx, subcutaneous gas, per my reading. On re-exam erythema on right arm as increased to axilla. Hospitalist consulted given increase in erythema since being in the ER. I spoke with Dr. Britt who does not feel pt. meets admission criteria at this time. He recommends dc home. Pt. comfortable with dc home. To continue augmentin as directed. Tylenol or motrin for pain as directed. Elevate arm and apply warm compresses. To see PCP in 1-2 days for wound check. To return to ER for increased pain, fever, redness, difficulty bending finger, or if concerned. Pt. understands and agrees with plan. - Diagnoses Differential Diagnosis/HQI/PQRI: Positive: Cellulitis, Fracture, Puncture, Superficial Infection, Deep Space Infection, Tenosynovitis Provider Diagnosis: Infected cat bite of finger Discharge - Sign-Out/Discharge Documenting (check all that apply): Patient Departure Patient Received Moderate/Deep Sedation with Procedure: No - Discharge Plan Condition: Good Disposition: HOME Patient Education Materials: Animal Bite (ED), Wound Infection (ED) Referrals: Mayra Webb MD [Primary Care Provider] - Additional Instructions: Schedule a follow up appointment with PCP in 1-2 days Continue antibioitc as directed Elevate and apply warm compresses Tylenol or Motrin for pain as directed Return to ER for increased redness, fever, vomiting, inability to bend finger, or if concerned - Billing Disposition and Condition Condition: GOOD Disposition: Home
[2019-02-06 21:17] LABS: ABS Basophils 0 10^3/ul (0-0.2); ABS Eosinophils 0.1 10^3/ul (0-0.6); ABS Lymphocytes 1.2 10^3/ul (1.0-4.8); ABS Monocytes 0.6 10^3/ul (0-0.8); ABS Nucleated RBC 0 10^3/ul; Eosinophil % 1.7 %; Hematocrit 38 % (33-41); Hemoglobin 12.6 g/dL (12.0-16.0); Lymphocyte % 16.7 %; Mean Corpuscular HGB Conc 33 g/dL (31-36); Mean Corpuscular Hemoglobin 30 pg (27-31); Mean Corpuscular Volume 90 fL (80-97); Mean Platelet Volume 10.4 fL (7.4-10.4); Nucleated Red Blood Cells % 0; Platelet Count 189 10^3/uL (150-450); Red Blood Count 4.21 10^6 /uL (3.70-4.87); Red Cell Distribution Width 13 % (10.5-15); White Blood Count 6.9 10^3/uL (3.5-10.8)
[2019-02-06 21:33] LABS: Albumin 4.4 g/dL (3.2-5.2); Albumin/Globulin Ratio 1.7 (1-3); BUN/Creatinine Ratio 13.4 (8-20); C Reactive Protein 48.66 mg/L (<8.01); Calcium 9.5 mg/dL (8.6-10.3); EGFR African American 50.5 (>60); EGFR Non-African American 41.7 (>60); Globulin 2.6 g/dL (2-4); Potassium 3.9 mmol/L (3.5-5.0); Total Bilirubin 0.6 mg/dL (0.2-1.0)
[2019-02-06 22:38] VITALS: BP 154/78
== END 2019-02-06 22:36 | disposition home or self-care (01) ==
LOC: ED 19:29
DX: S61.051A Open bite of right thumb without damage to nail, initial encounter (principal); L08.9 Local infection of the skin and subcutaneous tissue, unspecified; W55.01XA Bitten by cat, initial encounter; Y92.009 Unspecified place in unspecified non-institutional (private) residence as the place of occurrence of the external cause; E78.00 Pure hypercholesterolemia, unspecified; K21.9 Gastro-esophageal reflux disease without esophagitis; M19.90 Unspecified osteoarthritis, unspecified site; F32.9 Major depressive disorder, single episode, unspecified; F17.210 Nicotine dependence, cigarettes, uncomplicated; Z88.8 Allergy status to other drugs, medicaments and biological substances; Z79.899 Other long term (current) drug therapy
CPT/HCPCS: 36415; 80053; 85025; 86140; 87040; 96365; 99283; J2543

== ENCOUNTER 2019-04-01 11:23 | Observation (INO) | payer MEDICARE, BC ==
[2019-04-01 13:26] LABS: ABS Lymphocytes 0.7 10^3/ul (1.0-4.8); ABS Monocytes 0.2 10^3/ul (0-0.8); ABS Neutrophils 6.2 10^3/ul (1.5-7.7); Eosinophil % 0.5 %; Hematocrit 40 % (35-47); Hemoglobin 13.5 g/dL (12.0-16.0); Lymphocyte % 9.7 %; Mean Corpuscular HGB Conc 34 g/dL (31-36); Mean Corpuscular Hemoglobin 30 pg (27-31); Mean Corpuscular Volume 89 fL (80-97); Mean Platelet Volume 10.2 fL (7.4-10.4); Nucleated Red Blood Cells % 0.3; Platelet Count 181 10^3/uL (150-450); Red Blood Count 4.49 10^6 /uL (3.70-4.87); Red Cell Distribution Width 13 % (10-15); White Blood Count 7.2 10^3/uL (3.5-10.8)
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
[2019-04-01] MEDS ORDERED: Aspirin 81 mg CHEW TAB* 81 MG TAB.CHEW PO ONE (13:58)
[2019-04-01] MEDS ORDERED: Nitroglycerin TAB 0.4 MG* 0.4 MG TAB SL ONE (13:58)
[2019-04-01 14:05] LABS: Albumin 4.4 g/dL (3.2-5.2); Albumin/Globulin Ratio 1.6 (1-3); BUN/Creatinine Ratio 12.3 (8-20); Calcium 9.7 mg/dL (8.6-10.3); EGFR African American 95.6 (>60); Globulin 2.8 g/dL (2-4); Potassium 3.7 mmol/L (3.5-5.0); Total Bilirubin 0.7 mg/dL (0.2-1.0); Total Protein 7.2 g/dL (6.4-8.9)
[2019-04-01] MEDS ORDERED: NS 0.9% 1000 ML** 1,000 ML IV ONE (15:08)
[2019-04-01] MEDS ORDERED: Ondansetron INJ* 2 MG/ML VIAL IV PRN (15:09)
[2019-04-01] MEDS ORDERED: Al Hydrox/Mg Hydrox/Simet LIQ* 30 ML UDC PO ONE (15:10)
[2019-04-01] MEDS ORDERED: Lidocaine 2% VISCOUS* 15 ML UDC PO ONE (15:11)
[2019-04-01] MEDS ORDERED: Famotidine IV* 10 MG/ML 2 ML (20 mg) IV SLOW PU ONE (15:11)
[2019-04-01] MEDS ORDERED: Cyclobenzaprine TAB* 10 MG PO PRN (15:14)
[2019-04-01] MEDS ORDERED: ALPRAZolam TAB* 0.25 MG PO PRN (15:15)
[2019-04-01] MEDS ORDERED: Morphine 4 MG/ML VIAL (1 ml) 4 MG/ML VIAL IV ONE (15:21)
[2019-04-01] MEDS: NS 0.9% 1000 ML** 1,000 ML IV SCH (16:54)
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
[2019-04-01] MEDS ORDERED: Gabapentin CAP(*) 300 MG PO SCH (21:00)
[2019-04-01] MEDS ORDERED: Zolpidem TAB* 5 MG PO SCH (21:00)
[2019-04-01] MEDS: traMADol TAB* 50 MG PO PRN (21:27)
[2019-04-02] MEDS: NS 0.9% 1000 ML** 1,000 ML IV SCH (06:31)
[2019-04-02] MEDS ORDERED: BuPROPion XL* 150 MG TAB.XL PO SCH (09:00)
[2019-04-02] MEDS ORDERED: Folic Acid TAB* 1 MG PO SCH (09:00)
[2019-04-02] MEDS ORDERED: Pantoprazole TAB * 40 MG TAB PO SCH (10:00)
[2019-04-02 10:39] LABS: Hematocrit 39 % (35-47); Hemoglobin 13.2 g/dL (12.0-16.0); Mean Corpuscular HGB Conc 34 g/dL (31-36); Mean Corpuscular Hemoglobin 30 pg (27-31); Mean Corpuscular Volume 89 fL (80-97); Platelet Count 196 10^3/uL (150-450); Red Blood Count 4.43 10^6 /uL (3.70-4.87); Red Cell Distribution Width 13 % (10-15); White Blood Count 8.9 10^3/uL (3.5-10.8)
[2019-04-02 11:05] LABS: BUN/Creatinine Ratio 7.1 (8-20); Calcium 9.5 mg/dL (8.6-10.3); EGFR African American 80.2 (>60); EGFR Non-African American 66.3 (>60); Potassium 3.2 mmol/L (3.5-5.0)
[2019-04-02] MEDS: KCL 20 MEQ/100 ML IVPREMIX* 20 MEQ/100 ML BAG IV SCH ×2 (12:54→15:13)
[2019-04-02] MEDS: traMADol TAB* 50 MG PO PRN (13:01)
[2019-04-02 16:41] VITALS: BP 139/62
--- NOTE | 2019-04-02 23:58 | DS ---
CC: Dr. Mayra Webb * DISCHARGE SUMMARY: DATE OF ADMISSION: 04/01/19 DATE OF DISCHARGE: 04/02/19 ATTENDING PHYSICIAN WHILE IN HOSPITAL: Dr. Marco Stanton * (dictated by OLI Schmidt). PRIMARY CARE PROVIDER: Dr. Mayra Webb. PRIMARY DIAGNOSIS: Nausea and vomiting, likely stress related. SECONDARY DIAGNOSES: 1. History of depression. 2. Chronic pain. 3. Osteoarthritis. 4. Hyperlipidemia. PERTINENT LAB DATA: Troponin negative 0.00 x2, potassium 3.2. DISCHARGE MEDICATIONS: None. CONTINUED HOME MEDICATIONS: 1. Lipotriad Vision Support 1 cap p.o. daily. 2. Tramadol 50 mg p.o. q.6 hours p.r.n. pain. 3. Omeprazole 20 mg p.o. b.i.d. 4. Glucosamine 500 mg p.o. daily. 5. Gabapentin 300 mg p.o. at bedtime. 6. Folic acid 1 mg p.o. daily. 7. Ezetimibe/simvastatin 10/40 mg one tab p.o. daily. 8. Vytorin gel topically apply t.i.d. 9. Cyclobenzaprine 5 mg p.o. q.8 hours p.r.n. muscle spasms. 10. Celebrex 200 mg p.o. daily. 11. Calcium carbonate/vitamin D tablet daily. 12. Bupropion 300 mg p.o. daily. 13. Acetaminophen 650 mg p.o. q.8 hours p.r.n. pain. HISTORY OF PRESENT ILLNESS/HOSPITAL COURSE: Charity Jimenez is a 68-year-old white female with past medical history of depression, hyperlipidemia, and chronic pain, who presented to the emergency department on 04/01/19 due to intractable nausea and vomiting with some bloody emesis. Please see history and physical from date of admission dictated by Gina Parks, nurse practitioner , for further details. It was determined that her EKG from date of admission was the same as the one recorded in November 2017; and therefore, there were no acute changes and the concern for ACS was quite low. The patient's nausea and vomiting resolved overnight with use of famotidine and p.r.n. Zofran. The patient's H and H was stable. Of note, she did have hypokalemia of potassium to 3.2 and this was replaced with IV potassium. On date of discharge, she had no chest pain, neck pain, shoulder pain, difficulty breathing, fever chills, nausea, vomiting, abdominal pain, or diarrhea. The patient notes she does have lingering, mild jaw pain. PHYSICAL EXAMINATION: General: Elderly white female, who appears younger than stated age appearing comfortable in no acute distress. Head: Normocephalic, atraumatic. Eyes: PERRL. Sclerae anicteric. ENT: Mucous membranes moist. No tenderness to palpation of masseter muscles, but there is evident muscular tension bilateral masseter muscles. Neck: Supple without JVD. Cardiac: Regular rate and rhythm, without murmurs, rubs or gallops. Lungs: Clear to auscultation throughout. Abdomen: Soft, nontender, nondistended. Neurologic: The patient is alert and oriented x3. Normal gait, able to move all extremities. Extremities: No clubbing, cyanosis, or edema. DISCHARGE PLAN: Diet: The patient may return to regular diet. Activity: The patient may return to normal activity as tolerated. The patient was advised to return to emergency department if she experience any chest pain, difficulty breathing, radiating jaw pain or arm pain or vomiting such that she is unable keep liquids down. It is advised that the patient followed up with her primary care provider in 7 to 10 days. Although it is likely that these symptoms were related to acute stress of the of her , given that she has a hard sore heart sore of 3 and BESSIE sore of 1, it will be beneficial for her to have an outpatient stress test. To be further determined by her primary care provider on followup. Otherwise, the patient is to return to her normal home medications. At this time, it is also recommended that the primary care provider recheck a BMP to further assess if the hypokalemia is recurrent. CONDITION ON DISCHARGE: Stable. DISPOSITION: Discharged home. TIME SPENT: Approximately 40 minutes were spent on this discharge, approximately half of that time spent at bedside. OLI SCHMIDT [id number]/[facility] #: [id number] JOHN
== END 2019-04-02 18:00 | disposition home or self-care (01) ==
LOC: ED 11:23 → MED 15:04
PROVIDERS: ADMIT Internal Medicine; ATTEND Internal Medicine
DX: R11.2 Nausea with vomiting, unspecified (principal); F32.9 Major depressive disorder, single episode, unspecified; E78.5 Hyperlipidemia, unspecified; G89.29 Other chronic pain; M19.91 Primary osteoarthritis, unspecified site; R68.84 Jaw pain; Z87.891 Personal history of nicotine dependence; R21 Rash and other nonspecific skin eruption; K21.9 Gastro-esophageal reflux disease without esophagitis
CPT/HCPCS: 36415; 71045; 80048; 80053; 83605; 84484; 85025; 85027; 93005; 96374; 96375; 96376; 99283; A9270-GY; G0378; J2270; J3480

== ENCOUNTER 2019-08-29 18:09 | Emergency (ER) | payer MEDICARE, BC ==
--- OUTSIDE RECORDS SUMMARY | 2019-08-29 18:15 | XMS REPORT | Summary of Care ---
:1950 Author Organization [facility] Address [address] [address] Care Team Providers Name Role Phone Vanesavenancio Mayra Primary Care Provider Alireza Shetty OD Primary Genetics Nurse/Back Panel Padder Anil Trevizo MD Secondary Genetics Nurse/Back Panel Padder Gutierrez Whiteside MD Unavailable Salma Peoples PA-C Unavailable Reason for Visit Reason Comments Follow Up Bilateral ear pain. Epistaxis Refer to Department Only (Routine) Status Reason Specialty Diagnoses / Referred By Referred To Procedures Contact Contact Closed OTORHINOLARYNGOLOGY / Diagnoses Ear pain, bilateral Bleeding nose Pedro Patel Otorhinolaryngology JUAN Carver Otorhinolaryng [address] [place], [place] [address] [address] [address] Phone: [phone] Phone: Encounter Details Date Type Department Care Team Description 08/27/2019 Office Visit Anay Cabrera, Epistaxis (Primary Dx); Otorhinolaryngology PA-Baltazar Nasal dryness; [address] [facility] [address] TMJ (temporomandibular joint syndrome); [address] [address] [address] [address] Referred otalgia of both ears [phone] Allergies No Known Allergiesdocumented as of this encounter (statuses as of 08/27/2019) Medications Medication Sig Dispensed Refills Start Date End Date Status GLUCOSAMINE 500 MG Oral Cap Take 1 Cap by 0 Active mouth DAILY. Multiple Vitamin Take by 0 Active (MULTIVITAMINS PO) mouth. Calcium Carbonate-Vitamin D Take 1 Tab by 0 Active (CALCIUM + D PO) mouth DAILY. Acetaminophen (TYLENOL 8 Take by 0 Active HOUR PO) mouth NEEDED. Vitamins-Lipotropics Take by 0 Active (LIPO-FLAVONOID PLUS PO) mouth. celeCOXIB (CELEBREX) 200 MG take 1 90 Cap 3 12/17/2018 Active Oral CapIndications: Back capsule by pain, unspecified back mouth daily location, unspecified back pain laterality, unspecified chronicity diclofenac (VOLTAREN) 1 % 2 g by 100 g 3 01/16/2019 Active Transdermal GelIndications: Topical route Knee pain, right THREE TIMES DAILY. tramadol (ULTRAM) 50 MG Take 1 Tab by 60 Tab 1 02/06/2019 Active Oral TabIndications: mouth EVERY Arthralgia of left knee SIX HOURS NEEDED (pain). Max Daily Amount: 4 Tabs. foliC acid 1 MG Oral Take 1 Tab by 90 Tab 3 02/06/2019 Active TabIndications: Restless mouth DAILY. leg syndrome gabapentin (NEURONTIN) 300 take 1 0 01/02/2019 Active MG Oral Cap capsule by mouth once daily BEFORE BED cyclobenzaprine (FLEXERIL) take 1 tablet 0 01/23/2019 Active 5 MG Oral Tab by mouth every 8 hours if needed for muscle spasm Atovaquone-Proguanil HCl Take 1 Tab by 22 Tab 0 06/04/2019 Active (MALARONE) 250-100 MG Oral mouth DAILY. Tab Start 2 days before - finish 7 days after travel Omeprazole delayed rel cap Take 20 mg by 180 Cap 0 06/06/2019 Active 20 MG Oral CAPSULE DELAYED mouth TWICE RELEASE DAILY. buPROPion (WELLBUTRIN XL) take 1 tablet 90 Tab 3 07/12/2019 Active 300 MG Oral TABLET SR 24 by mouth once HRIndications: Depression, daily unspecified depression type Ezetimibe-Simvastatin TAKE 1 TABLET 90 Tab 0 08/19/2019 Active (VYTORIN) 10-40 MG Oral BY MOUTH ONCE TabIndications: Pure DAILY hypercholesterolemia documented as of this encounter (statuses as of 08/27/2019) Active Problems Problem Noted Date Primary osteoarthritis of right knee 07/21/2017 Primary osteoarthritis of both knees 07/14/2017 Bilateral pseudophakia 06/20/2016 Bilateral wrist pain 04/27/2016 Thrombocytopenia 06/26/2014 Primary localized osteoarthrosis, lower leg 03/31/2014 Knee pain, right 02/19/2014 Primary osteoarthritis of left knee 02/19/2014 Cervical polyp 10/06/2009 Overview: Noted 09/30- removed 1998 Lump or mass in breast 03/21/2006 Depression 09/29/1998 Hyperlipidemia 09/29/1998 Back pain 09/29/1998 Sinus headache 09/29/1998 PVD (posterior vitreous detachment), left eye PONV (postoperative nausea and vomiting) documented as of this encounter (statuses as of 08/27/2019) Resolved Problems Problem Noted Date Resolved Date Other secondary cataract, left eye 06/20/2016 documented as of this encounter (statuses as of 08/27/2019) Immunizations Name Administration Dates Next Due Euflexxa (2ml) 04/14/2014, 04/07/2014, 03/31/2014 Euflexxa (4ml) 01/07/2016, 01/01/2016, 12/25/2015 Hepatitis A Vaccine-Adult 05/24/2016 Hepatitis B Vaccine Adult 12/30/2013, 07/31/2013, 07/01/2013 Influenza (IM) Preservative Free 07/31/2013, 09/18/2012, 08/10/2011, 08/11/2009 Influenza Vaccine 65 Yrs + 08/09/2019 Influenza Vaccine High Dose 08/09/2018, 10/10/2017, 08/04/2016, 10/12/2015, 09/01/2014 PNEUMOCOCCAL POLYSACCHARIDE VACCINE 10/12/2015 Pneumococcal Conjugate(13 Valent) 09/01/2014 TDAP Vaccine 02/06/2019, 07/18/2008 TYPHOID VACCINE 05/24/2016 YELLOW FEVER VACCINE 05/24/2016 ZOSTER (ZOSTAVAX) VACCINE 07/01/2013 documented as of this encounter Social History Tobacco Use Types Packs/Day Years Used Date Former Smoker Quit: 11/19/1982 Smokeless Tobacco: Never Used Alcohol Use Drinks/Week oz/Week Comments Yes 1 Standard drinks or equivalent 1.0 Occasional Sex Assigned at Date Recorded Not on file Job Start Date Occupation Industry Not on file Not on file Not on file Travel History Travel Start Travel End No recent travel history available. documented as of this encounter Last Filed Vital Signs Vital Sign Reading Time Taken Comments Blood Pressure 140/78 08/27/2019 9:16 AM EST Pulse 70 08/27/2019 9:16 AM EST Temperature - - Respiratory Rate - - Oxygen Saturation 99% 08/27/2019 9:16 AM EST Inhaled Oxygen Concentration - - Weight 82.6 kg (182 lb) 08/27/2019 9:16 AM EST Height 180.3 cm (5' 11") 08/27/2019 9:16 AM EST Body Mass Index 25.38 08/27/2019 9:16 AM EST documented in this encounter Patient Instructions Patient InstructionsAnay Henderson PA-C - 08/27/2019 9:30 AM ESTEars: Both ears appear healthy on exam today. No significant retraction or middle ear effusions. It is likely the ear pain is referred from irritation to the temporomandibular joint. There is a sensorineuralhearing loss present which remains stable when compared to the last hearing test. Review temporal mandibular joint pamphlets Avoid gum chewing, grinding, and clenching of teeth Implement a soft diet May try mouth guard at nighttime which can be purchased over the counter or custom made by a dental provider. May refer to [facility] Al[facility] - [phone] Nose: There is dryness of the nasal mucosa, especially of the nasal septum. It is likely the nasal mucosa cracks allowing a vessel to come to surface resulting in a nose bleed. There are no prominent vesselsnoted on today's exam that could be cauterized. Recommendations: Saline Nasal Sunray - 2 sprays in each nostril as needed to keep mucosa moist Bacitracin / [place] ointment / vaseline- apply pea sized amount inside both nostrils just before bed. Can also be used once during the day as well. Apply into each nare with the end of your pinky finger.Then pinch the sides of the nose to moisturize the ointment and allow it to advance further up into the nose. If bleeding occurs, place thumb and index finger on opposite sides of nose by eyes, slide fingers down nose until it is no longer hard and bony, apply direct pressure to this area with head in neutral position. Maintain the pressure for 10 minutes before releasing. Call the office at [phone] if your nose continues to bleed. If after clinic hours (M-F 8am - 5pm) proceed to the closest Emergency Room. Follow up as needed. documented in this encounter Progress Notes Anay Henderson PA-C - 08/27/2019 9:30 AM EST [facility] Otolaryngology OFFICE NOTE Name: Charity Jimenez Date of : 1950 B Number: [id number] Date of Examination: 08/27/2019 Chief Complaint: Chief Complaint Patient presents with Follow Up Bilateral ear pain. Epistaxis History of Present Illness: Charity Jimenez is a 69-y.o. female who presents today for ear and sinus issues. Last seen by Dr. Zamora on 01-04-18 for tinnitus and hearing loss. She complains of bilateral mild intermittent earache for the past few months. Has a long standing history of tinnitus. Denies any changes in hearing, pressure, fullness, plugging, and vertigo. Has never had ear surgery. Has occasional ear infections-1 every couple years. 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 Does have a tendency to clench the teeth. Denies grinding of the teeth. Has occasional nose bleeds for the past year. Typically left sided, anterior, and that last a coupleminutes. Last nose bleed was a few days ago. Will occur spontaneously or after blowing the nose. Reports bleeding is slow. Denies history of bleeding disorders. Denies recent nasal trauma. Has not had sinonasal surgery. Occasionally uses saline. Does not take blood thinners. She denies other related symptoms or complaints. Past History: Past medical and surgical histories were reviewed. Patient Active Problem List Diagnosis Lump or mass in breast Depression Hyperlipidemia Back pain Sinus headache Cervical polyp Knee pain, right Primary osteoarthritis of left knee Primary localized osteoarthrosis, lower leg Thrombocytopenia (HCC) Bilateral wrist pain PVD (posterior vitreous detachment), left eye Bilateral pseudophakia Primary osteoarthritis of both knees Primary osteoarthritis of right knee PONV (postoperative nausea and vomiting) Allergies: No Known Allergies Current Medications: Current medications include Current Outpatient Medications Medication Sig Acetaminophen (TYLENOL 8 HOUR PO) Take by mouth NEEDED. Atovaquone-Proguanil HCl (MALARONE) 250-100 MG Oral Tab Take 1 Tab by mouth DAILY. Start 2 days before - finish 7 days after travel buPROPion (WELLBUTRIN XL) 300 MG Oral TABLET SR 24 HR take 1 tablet by mouth once daily Calcium Carbonate-Vitamin D (CALCIUM + D PO) Take 1 Tab by mouth DAILY. celeCOXIB (CELEBREX) 200 MG Oral Cap take 1 capsule by mouth daily cyclobenzaprine (FLEXERIL) 5 MG Oral Tab take 1 tablet by mouth every 8 hours if needed for muscle spasm diclofenac (VOLTAREN) 1 % Transdermal Gel 2 g by Topical route THREE TIMES DAILY. Ezetimibe-Simvastatin (VYTORIN) 10-40 MG Oral Tab TAKE 1 TABLET BY MOUTH ONCE DAILY foliC acid 1 MG Oral Tab Take 1 Tab by mouth DAILY. gabapentin (NEURONTIN) 300 MG Oral Cap take 1 capsule by mouth once daily BEFORE BED GLUCOSAMINE 500 MG Oral Cap Take 1 Cap by mouth DAILY. Multiple Vitamin (MULTIVITAMINS PO) Take by mouth. Omeprazole delayed rel cap 20 MG Oral CAPSULE DELAYED RELEASE Take 20 mg by mouth TWICE DAILY. tramadol (ULTRAM) 50 MG Oral Tab Take 1 Tab by mouth EVERY SIX HOURS NEEDED (pain). Max Daily Amount: 4 Tabs. Vitamins-Lipotropics (LIPO-FLAVONOID PLUS PO) Take by mouth. No current facility-administered medications for this visit. 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 She denies hearing loss, vertigo, tinnitus, ear pain, ear drainage or facial paralysis. Nose: +nasal bleeding. She denies chronic nasal obstruction, other nasal drainage or facial pain. Oral: She denies oral pain, oral bleeding, dental pain, oral ulcerations or sores. Pharynx: She denies frequent sore throats, nausea or vomiting, or dysphagia. Larynx: She denies hoarseness, stridor or hemoptysis Neck: She denies neck masses or neck pain Skin: She denies prior facial or skin cancers or lesions. General Review of Systems: Respiratory: She denies dyspnea, stridor or wheezing. Cardiac: She denies chest pain or palpitations. Neurologic: She denies abnormal change in level of consciousness or motor impairment. All other systems were negative PHYSICAL EXAMINATION: Vital Signs: BP 140/78 (BP Location: Left arm, Patient Position: Sitting) | Pulse 70 | Ht 5' 11" (1.803 m) | Wt 182 lb (82.6 kg) | SpO2 99% | BMI 25.38 kg/m General: Charity Jimenez is a well-developed, well-nourished 69-y.o. female who appears her statedage. The patient is alert and oriented x 3, in no acute distress without pallor, cyanosis or jaundice. Head: Normocephalic without masses. She does not have swelling in the parotid regions or in the submandibular salivary glands. Facial nerve function is intact and symmetrical bilaterally. Clicking of the left TM joint and pain with palpation. Ears: Both pinnae are normal and well formed without skin lesions. External auditory canals are clear wihtout cerumen. Tympanic membranes are intact and clear without bulging or retraction. No middle ear effusions are present. No cholesteatoma is evident in either ear. Nose: The external nose is clear without skin lesions. The nasal septum is intact and not deviated. Septal mucosa appears chapped, no prominent vessels. Nasal turbinates are not enlarged nor boggy.No nasal polyps are noted. There is no nasal purulence or discharge. Oral: The oral mucosa is clear: There are no lesions of the lips, palate, buccal mucosa, floor of mouth or tongue. There is good tongue mobility. Pharynx: Tonsils unremarkable. Pharynx is not injected. Larynx: She speaks with a clear voice. Neck: Neck exam does not show cervical lymphadenopathy or other masses. No masses are noted in palpating the thyroid area. No skin lesions are noted in the neck area. Neurologic: She is fully oriented and alert. AUDIOGRAM: I personally reviewed the audiogram which indicated a bilateral sensorineural hearing loss. Type A tympanograms bilaterally. ASSESSMENT: ICD-9-CM ICD-10-CM 1. Epistaxis 784.7 R04.0 2. Nasal dryness 478.19 J34.89 3. TMJ (temporomandibular joint syndrome) 524.60 M26.609 4. Referred otalgia of both ears 388.72 H92.03 PLANS AND RECOMMENDATIONS: Ears: Both ears appear healthy on exam today. No significant retraction or middle ear effusions. It is likely the ear pain is referred from irritation to the temporomandibular joint. There is a sensorineuralhearing loss present which remains stable when compared to the last hearing test. Review temporal mandibular joint pamphlets Avoid gum chewing, grinding, and clenching of teeth Implement a soft diet May try mouth guard at nighttime which can be purchased over the counter or custom made by a dental provider. May refer to [facility] Dr. Alba - [phone] Nose: There is dryness of the nasal mucosa, especially of the nasal septum. It is likely the nasal mucosa cracks allowing a vessel to come to surface resulting in a nose bleed. There are no prominent vesselsnoted on today's exam that could be cauterized. Recommendations: Saline Nasal Sunray - 2 sprays in each nostril as needed to keep mucosa moist Bacitracin / [place] ointment / vaseline- apply pea sized amount inside both nostrils just before bed. Can also be used once during the day as well. Apply into each nare with the end of your pinky finger.Then pinch the sides of the nose to moisturize the ointment and allow it to advance further up into the nose. If bleeding occurs, place thumb and index finger on opposite sides of nose by eyes, slide fingers down nose until it is no longer hard and bony, apply direct pressure to this area with head in neutral position. Maintain the pressure for 10 minutes before releasing. Call the office at [phone] if your nose continues to bleed. If after clinic hours (M-F 8am - 5pm) proceed to the closest Emergency Room. Follow up as needed. Anay Hendesron PA-C [facility] Otolaryngology Attending Physician: Jeferson García MD documented in this encounter Plan of Treatment Health Maintenance Due Date Last Done Comments ZOSTER IMMUNIZATION SERIES 08/26/2013 07/01/2013 (2 of 3) FALL RISK ASSESSMENT 2014 MEDICARE ANNUAL WELLNESS 10/10/2018 10/10/2017, 09/01/2014 VISIT DIABETES SCREENING 11/15/2019 11/15/2018, 01/30/2018, 12/20/2016, Additional history exists DEPRESSION SCREENING 03/27/2020 03/27/2019, 10/10/2017 COLONOSCOPY SCREENING 11/11/2020 11/11/2015, 10/27/2009 OSTEOPOROSIS SCREENING 10/07/2021 10/07/2011, 11/15/2009 LIPID DISORDER SCREENING 08/19/2024 08/19/2019, 05/03/2016, 06/25/2014, Additional history exists PNEUMOCOCCAL 65+YRS Completed 10/12/2015, 09/01/2014 INFLUENZA VACCINE Completed 08/09/2019, 08/09/2018, 10/10/2017, Additional history exists HPV IMMUNIZATION SERIES Aged Out No longer eligible based on patient's age to complete this topic MENINGOCOCCAL VACCINE IMM Aged Out No longer eligible based on patient's age to complete this topic documented as of this encounter Goals Goal Patient Goal Associated Recent Patient-Stated? Author Type Problems Progress Depression Depression 2 (10/10/2017 No Jorge, screen (PHQ-9) 10:19 AM EST) Wen, total score < 5 JUAN Note: This is an individualized treatment (depression) goal for Charity Jimenez: Displayed above is your goal for a depression screening (PHQ-9) score that would indicate good control of your depression. Keep a regular sleep schedule Lifestyle No Wen Patel PA-C Note: This is an individualized lifestyle goal for Charity Jimenez: Please maintain a regular sleep schedule. This may help with some symptoms of depression. Take all prescribed medications as Self-management No Wen Patel PA-C directed Note: This is an individualized self-management goal for Charity Jimenez: Please take all prescribed medications as directed. 1. Do not skip doses. If you cannot afford your medications, talk with your doctor. 2. Use a pill reminder system such as a pill box if needed. Your pharmacist can help you with this. 3. Contact your Pharmacy 5 days before your medication runs out. If you cannot take your medications for any reasons, talk with your doctor. 4. Please bring all of your medication bottles and inhalers (or a list of all your medications/inhalers) with you to every visit. Potential barriers to meeting all of your care plan goals will continue to be addressed on an ongoing basis. documented as of this encounter Implants Implanted Type Area T Rail Turner Device Shelf Model / Serial Identifier Expiration Date / Lot Iol, [id number] 22.0 Diopter - [id number] Right: STORZ [id number] / Implanted: Qty: 1 on 10/12/2011 at [facility] / [id number] Iol, [id number] 21.5 Diopter - [id number] Left: Eye STORZ [id number] / Implanted: Qty: 1 on 10/31/2011 at [facility] / [id number] documented as of this encounter Results Not on filedocumented in this encounter Visit Diagnoses Diagnosis Epistaxis - Primary Nasal dryness Other diseases of nasal cavity and sinuses TMJ (temporomandibular joint syndrome) Temporomandibular joint disorders, unspecified Referred otalgia of both ears documented in this encounter Guarantor Name Account Type Relation to Date of Phone Billing Patient Address Charity Jimenez [place] Personal/Family 1950 [address] [phone] [place], [place] (Work) [id number] documented as of this encounter Advance Directives Type Date Recorded 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
--- OUTSIDE RECORDS SUMMARY | 2019-08-29 18:15 | XMS REPORT | Summary of Care ---
:1950 Author Organization [facility] Address [address] [address] Care Team Providers Name Role Phone Mayra Webb Primary Care Provider Alireza Shetty OD Primary Ship Mate/Big Data Admin Anil Trevizo MD Secondary Ship Mate/Big Data Admin Gutierrez Whiteside MD Unavailable Salma Peoples PA-C Unavailable Reason for Visit Reason Comments Hearing Evaluation Ear Problem Encounter Details Date Type Department Care Team Description 08/27/2019 Office Visit Jose Roberto Storey, Otalgia of both ears ( Primary Dx); Audiology/Speech - AuD Sensorineural hearing loss, bilateral; [place] [address] Tinnitus, bilateral [address] [place] [address] [address] [address] [address] Allergies No Known Allergiesdocumented as of this [...] of this encounter Last Filed Vital Signs Not on filedocumented in this encounter Progress Notes Jose Roberto Bowden AuD - 08/27/2019 10:00 AM ESTHistory: The patient was unaccompanied to today's comprehensive hearing evaluation. The patient's main concern is chronic bilateral otalgia. She has a known bilateral SNHL/tinnitus and currently employs the useof binaural amplification intermittently. Please see Anay Henderson's clinical notes for comprehensive case history. Otoscopy: Otoscopy revealed clear canals and intact tympanic membranes, AU. Tympanometry: Type A tympanograms were obtained bilaterally, suggesting normal middle ear pressure and tympanic membrane mobility. Pure-tone Audiometry: Pure-tone test results were obtained using headphones. Testing revealed hearing within normal limitsfrom 250-3000 Hz sloping to a moderate sensorineural loss in the right ear and hearing within normallimits from 250-3000 Hz sloping to a moderate-severe sensorineural hearing loss in the left ear. Pure-tone testing was completed with good reliability. Audiometric thresholds have remained essentially unchanged. Speech Audiometry: Speech Recognition Thresholds (SRT's) were obtained at 15 dB HL for the right ear and 20 dB HL for the left ear, which are consistent with the patient's pure- tone findings. Word Recognition Scores (WRS) revealed 92% discrimination at 55 dB for the right ear and 92% discrimination at 60 dB for the leftear for monosyllabic words presented at the patient's most comfortable listening level in a quiet environment, indicating excellent word recognition for monosyllabic words presented at a comfortable listening level in a quiet environment. Word Recognition Scores have remained stable since their last evaluation. Recommendations: 1. Follow-up with scheduled ENT consultation. 2. Hearing re-test in one year or sooner if suspected change in hearing. documented in this encounter Plan of Treatment Name Type Priority Associated Diagnoses Order Schedule BASIC COMPREHENSIVE Procedures Routine Sensorineural hearing Ordered: AUDIO loss, bilateral 08/27/2019 Tinnitus, bilateral Otalgia of both ears TYMPANOMETRY Procedures Routine Sensorineural hearing Ordered: loss, bilateral 08/27/2019 Tinnitus, bilateral Otalgia of both ears Health Maintenance Due Date Last Done Comments [...] No Jorge, screen (PHQ-9) 10:19 AM EST) Wen total score < 5 JUAN Note: This is an individualized treatment (depression) goal for Charity Jimenez: Displayed above is your goal for a depression screening (PHQ-9) score that would indicate good control of your depression. Keep a regular sleep schedule Lifestyle No Wen Patel PA-C Note: This is an individualized lifestyle goal for Chraity Jimenez: Please maintain a regular sleep schedule. [...] of this encounter Implants Implanted Type Area Tar Roofer Device Shelf Model / Serial Identifier Expiration Date / Lot Iol, [id number] 22.0 Diopter - [id number] Right: BART [id number] / Implanted: Qty: 1 on 10/12/2011 at [facility] / [id number] Iol, [id number] 21.5 Diopter - [id number] Left: Eye STORZ [id number] / Implanted: Qty: 1 on 10/31/2011 at [facility] / [id number] documented as of this encounter Results Not on filedocumented in this encounter Visit Diagnoses Diagnosis Otalgia of both ears - Primary Otalgia, unspecified Sensorineural hearing loss, bilateral Tinnitus, bilateral Unspecified tinnitus documented in this encounter Guarantor Name Account Type Relation to Date of Phone Billing Patient Address BarbaraCharity huntley Personal/Family 1950 [address]) [address] [phone] [place], [place] (Work) [address] documented as of this encounter Advance Directives Type Date Recorded Patient Health Safety Engineer Explanation Advance Directives 09/20/2017 6:51 AM
[2019-08-29 19:00] VITALS: BP 154/92
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
== END 2019-08-29 20:35 | disposition home or self-care (01) ==
LOC: UCEAST 18:09
DX: L03.317 Cellulitis of buttock (principal); L02.31 Cutaneous abscess of buttock; Z88.8 Allergy status to other drugs, medicaments and biological substances; Z87.891 Personal history of nicotine dependence
CPT/HCPCS: 99212; G0463

== ENCOUNTER 2021-12-07 00:59 | Inpatient (IN) ==
[2021-12-07] MEDS ORDERED: Lactated Ringers 1000 ml BAG 1,000 ML IV ONE (01:55)
[2021-12-07 02:44] LABS: ABS Basophils 0.1 10^3/ul (0-0.2); ABS Eosinophils 0.1 10^3/ul (0-0.6); ABS Lymphocytes 0.8 10^3/ul (1.0-4.8); ABS Monocytes 0.6 10^3/ul (0-0.8); ABS Neutrophils 8.9 10^3/ul (1.5-7.7); Hematocrit 41 % (35-47); Hemoglobin 14.4 g/dL (12.0-16.0); Lymphocyte % 7.7 %; Mean Corpuscular HGB Conc 35 g/dL (31-36); Mean Corpuscular Hemoglobin 32 pg (27-31); Mean Corpuscular Volume 91 fL (80-97); Mean Platelet Volume 10.3 fL (7.4-10.4); Nucleated Red Blood Cells % 0.1; Platelet Count 152 10^3/uL (150-450); Red Blood Count 4.54 10^6 /uL (3.70-4.87); Red Cell Distribution Width 12 % (10-15); White Blood Count 10.5 10^3/uL (3.5-10.8)
[2021-12-07 02:58] LABS: Calcium 9.3 mg/dL (8.6-10.3); Potassium 3.5 mmol/L (3.5-5.0); eGFR CKD-EPI 88.8 (>60)
[2021-12-07] MEDS ORDERED: Iohexol 300 (CONTRAST) 10 ML SDV IV ONE (04:15)
[2021-12-07] MEDS ORDERED: Piperacillin/Tazobac ADVAN 3.375 GM in NS 0.9% 100 ml BAG 100 ML IV ONE (06:36)
[2021-12-07] MEDS ORDERED: Acetaminophen IV 1 GM/100ML 100 ML IV ONE (09:27)
[2021-12-07] MEDS ORDERED: Norepinephrine 16MCG/ML BAG NS 4,000 MCG/250 ML BAG IV ONE (09:52)
[2021-12-07] MEDS ORDERED: HYDROmorphone 0.5 MG/0.5 ML SYRINGE IV SLOW PU PRN (09:53)
[2021-12-07] MEDS ORDERED: DiMENhydriNATE IV 50 mg/ml 1 ml VIAL IV PUSH PRN (13:04)
[2021-12-07] MEDS ORDERED: fentaNYL 100 mcg/2 ml 50 MCG/ML VIAL IV PRN (13:04)
[2021-12-07] MEDS ORDERED: oxyCODONE/Acetamin 5/325 mg TAB PO PRN (13:04)
[2021-12-07] MEDS ORDERED: Ondansetron 4 mg VIAL 2 MG/ML 2 ml VIAL IV PRN (13:04)
[2021-12-07] MEDS ORDERED: Naloxone 0.4 mg VIAL 0.4 mg/ml 1 ml VIAL IV PRN (13:04)
[2021-12-07] MEDS ORDERED: fentaNYL 100 mcg/2 ml 50 MCG/ML VIAL ONE (14:39)
[2021-12-07] MEDS ORDERED: Propofol 10 MG/ML 20 ML BTL ONE ×2 (14:39)
[2021-12-07] MEDS ORDERED: Bupivacaine 0.5% SDV PF 30ML VIAL ONE (14:39)
[2021-12-07] MEDS ORDERED: Rocuronium 50 mg VIAL 10 mg/ml 5 ml VIAL (50 mg) ONE (14:39)
[2021-12-07] MEDS ORDERED: Midazolam 2 mg/2 ml VIAL 1 mg/ml 2 ml VIAL (2 mg) ONE (14:39)
[2021-12-07] MEDS ORDERED: Lidocaine 1% w EPI 1:200,000 SDV 30 ML VIAL ONE (14:39)
[2021-12-07] MEDS ORDERED: Lidocaine 2% PF 5 ML VIAL ONE (14:40)
[2021-12-07] MEDS ORDERED: Bupivacaine 0.25% EPI 200,000 30 ML SDV ONE (14:40)
[2021-12-07] MEDS ORDERED: ZOSYN 3.375 GM x ONE DOSE over 30 miuntes IV (15:00)
[2021-12-07] MEDS ORDERED: oxyCODONE/Acetamin 5/325 mg TAB ONE (17:16)
[2021-12-07 17:49] VITALS: BP 162/88
== END 2021-12-07 17:53 | disposition home or self-care (01) | DRG 343 ==
LOC: ED 00:59 → AA 14:14
PROVIDERS: ADMIT Surgery; ATTEND Surgery